=== PATIENT | female | born 1940 | race Caucasian/White ===

== ENCOUNTER 2019-07-30 20:38 | Emergency (ER) | payer MEDICARE, OTHER ==
[~2019-07-30] VITALS: Ht 158 cm; Wt 63.6 kg
[2019-07-30] MEDS ORDERED: AMLO5TAB9 (20:57)
[2019-07-30] MEDS ORDERED: ROSU20TA32 (20:57)
[2019-07-30] MEDS ORDERED: ASPI-999 PO (20:57)
[2019-07-30] MEDS ORDERED: METO-387 (20:57)
[2019-07-30] MEDS ORDERED: SERT50TA9 (20:57)
[2019-07-30] MEDS ORDERED: LOSA100T57 (20:57)
--- NOTE | 2019-07-30 21:32 | ED Fall/Injury ---
General Chief Complaint: Trauma-Non Activation Stated Complaint: FALL/ LT HAND LAC, BUMPED HER HEAD Nursing Triage Note: fall from standing position. Source: patient, family Exam Limitations: no limitations History of Present Illness Date Seen by Provider: Jul 30, 2019 Time Seen by Provider: 21:11 Initial Comments Patient presents ER by private conveyance with her niece and family with chief complaint that about 30 minutes prior to arrival she had a fall while walking her niece's dog a large Labrador retriever. She said the dog saw her niece and wanted to run to her pulling the patient to the ground face first. She said she was out for about a second and then confused for several minutes. The fall was witnessed by family. She's having some pain in the middle of her chest where she hit the ground as well as has a hematoma and pain over her fifth metacarpal dorsally. She has pain in her mentum but not in her TMJ bilaterally. She has no shortness of breath cough fever chills nausea vomiting dysuria diarrhea. She does not take blood thinner but she does take aspirin. She recently moved to [place] in the independent living and has not established care with a primary care doctor yet but she is filling out paperwork to follow with Dr. Holcomb. Allergies and Home Medications Allergies Coded Allergies: duloxetine (Verified Allergy, Unknown, 07/30/19) hydrocodone (Verified Allergy, Unknown, 07/30/19) lisinopril (Verified Allergy, Unknown, 07/30/19) morphine (Verified Allergy, Unknown, 07/30/19) sulfamethoxazole (Verified Allergy, Unknown, Rash, 07/30/19) tetanus and diphtheria toxoids (Verified Allergy, Unknown, 07/30/19) trimethoprim (Verified Allergy, Unknown, Rash, 07/30/19) Patient Home Medication List Home Medication List Reviewed: Yes Review of Systems Review of Systems Constitutional: No chills, No diaphoresis Eyes: Denies Blindness, Denies Blurred Vision Ears, Nose, Mouth, Throat: denies ear pain, denies ear discharge Respiratory: No cough, No hemoptysis Cardiovascular: see HPI, chest pain; No edema, No Hx of Intervention, No palpitations Gastrointestinal: No abdominal pain, No constipation, No diarrhea, No nausea Genitourinary: No discharge, No dysuria Musculoskeletal: see HPI All Other Systems Reviewed Negative Unless Noted: Yes Past Uwqrqjb-Tyexbv-Vidiwc Hx Patient Social History Alcohol Use: Denies Use Recreational Drug Use: No Smoking Status: Never a Smoker 2nd Hand Smoke Exposure: No Recent Foreign Travel: No Contact w/Someone Who Travel: No Recent Infectious Disease Expo: No Recent Hopitalizations: No Physical Abuse: No Sexual Abuse: No Mistreated: No Fear: No Immunizations Up To Date Tetanus Booster (TDap): Unknown Date of Influenza Vaccine: Jul 28, 2019 Seasonal Allergies Seasonal Allergies: No Past Medical History Surgeries: Yes Adenoidectomy, Appendectomy, Gallbladder, Hysterectomy, Orthopedic, Tonsillectomy Respiratory: No Cardiac: Yes High Cholesterol, Hypertension Neurological: No : No [employer] History: Hysterectomy Genitourinary: No Gastrointestinal: No Musculoskeletal: Yes Arthritis Endocrine: No HEENT: No Hearing Impairment: Hard of Hearing, Hearing Aide Right, Hearing Aide Left Cancer: No Psychosocial: No Integumentary: No Blood Disorders: No Adverse Reaction/Blood Tranf: No Physical Exam Vital Signs Vital Signs - First Documented 07/30/19 20:43 Temp 36.4 Pulse 72 Resp 18 B/P (MAP) 168/93 (118) Pulse Ox 95 O2 Delivery Room Air Capillary Refill : Less Than 3 Seconds Height, Weight, BMI Height: '" Weight: lbs. oz. kg; 25.00 BMI Method: General Appearance: WD/WN, mild distress HEENT: PERRL/EOMI, normal ENT inspection, TMs normal, pharynx normal, other Neck: full range of motion, normal inspection Cardiovascular: normal peripheral pulses, regular rate, rhythm Respiratory: No chest non-tender (anterior mediastinum tender to direct palpation of the manubrium); lungs clear, normal breath sounds, no respiratory distress, no accessory muscle use Peripheral Pulses: 2+ Radial Pulses (R), 2+ Radial Pulses (L) Gastrointestinal: normal bowel sounds, non tender, soft Back: normal inspection, no vertebral tenderness Extremities: normal range of motion, normal capillary refill, other (left hand has a 3 cm hematoma with a cervical skin tear and there is a superficial one similar skin tear on the left elbow) Neurologic/Psychiatric: no motor/sensory deficits, alert, normal mood/affect, oriented x 3 Skin: warm/dry, ecchymosis (hematoma over the left hand fourth and fifth distal medical carpal metacarpal) [place] Coma Score Best Eye Response: (4) Open Spontaneously Best Verbal Response: (5) Oriented Best Motor Response: (6) Obeys Commands Alicia Total: 15 Procedures/Interventions Wound Location: Upper Extremities Other Wound Location Dorsum of the left hand over the distal fifth metacarpal Wound Length (cm): 1.5 Wound's Depth, Shape: superficial, linear Wound Explored: clean Irrigated w/ Saline (ccs): 20 Betadine Prep?: No Other Closure Supply: Wound Adhesive Wound Location: Upper Extremities Other Wound Location Left elbow Wound Length (cm): 1.5 Wound's Depth, Shape: superficial, linear Wound Explored: clean Irrigated w/ Saline (ccs): 15 Betadine Prep?: No Other Closure Supply: Wound Adhesive Progress/Results/Core Measures Results/Orders My Orders Orders - SANIYA CHENG Chest Pa/Lat (2 View) (07/30/19 21:22) Ct Head/Face/Cervical Wo (07/30/19 21:22) Hand, Left, 3 Views (07/30/19 21:28) Vital Signs/I&O 07/30/19 20:43 Temp 36.4 Pulse 72 Resp 18 B/P (MAP) 168/93 (118) Pulse Ox 95 O2 Delivery Room Air Blood Pressure Mean: 118 POS Progress Progress Note : Time: 23:[address] of the head face and neck without IV contrast, x-ray of the left hand. Elbow has full range of motion of crepitus. Glue and/or dress her superficial skin tears. Lino bandage for compression applied. Patient declined a tetanus shot due to cited allergy. Diagnostic Imaging Diagonstic Imaging: CT (without IV contrast) Plain Films/CT/US/NM/MRI: facial bones, c-spine, head Comments Head CT without acute findings. C-spine without acute findings. Facial bones without acute findings. Reviewed: Reviewed Night [facility] Study, Reviewed by Me Diagonstic Imaging: Xray Plain Films/CT/US/NM/MRI: chest (2v) Comments No acute cardiopulmonary process. No acute osseous abnormality noted. Reviewed: Reviewed by Me Diagonstic Imaging: Xray Plain Films/CT/US/NM/MRI: hand (Left) Comments No acute osseous abnormality noted. Reviewed: Reviewed by Me Departure Impression Primary Impression: Fall Qualified Codes: W19.XXXA - Unspecified fall, initial encounter Additional Impressions: Sternal contusion Qualified Codes: S20.219A - Contusion of unspecified front wall of thorax, initial encounter Traumatic hematoma of left hand Qualified Codes: S60.222A - Contusion of left hand, initial encounter Skin tear Disposition: 01 HOME, SELF-CARE Condition: Stable Departure-Patient Inst. Decision time for Depature: 23:18 Referrals: NO,LOCAL PHYSICIAN (PCP/Family) Primary Care Physician Patient Instructions: HEMATOMA, Minor Head Injury (DC) Add. Discharge Instructions: Apply ice to your hand for 20 minutes every 4 hours while awake One to 2 days. Tylenol 1000 mg every 8 hours as needed for pain. Ibuprofen 800 mg every 8 hours as needed for pain. Compression dressing such as an Lino wrap until the swelling in your hand goes down. If you're still having significant pain or swelling at 7-10 days out then you should follow-up with your primary care doctor for reexamination. All discharge instructions reviewed with patient and/or family. Voiced understanding. SANIYA CHENG Jul 30, 2019 21:32 POS
[2019-07-30] MEDS ORDERED: KETOROLAC 60 MG/2 ML VIAL IM ONE (23:15)
[2019-07-30 23:30] VITALS: BP 172/87
--- NOTE | 2019-07-31 05:41 | Diagnostic Imaging Report ---
PROCEDURE: CT head, face, and cervical spine without contrast. TECHNIQUE: Multiple contiguous axial images were obtained through the head, neck, and facial bones without the use of intravenous contrast. Sagittal and coronal reformations through the cervical spine and facial bones were also performed. Auto Exposure Controls were utilized during the CT exam to meet ALARA standards for radiation dose reduction. INDICATION: Fall, pain COMPARISON: None available FINDINGS: Mild atrophy. No intracranial hemorrhage. No intracranial mass, mass effect, midline shift, herniation, hydrocephalus, or extra-axial fluid collection. Periventricular and subcortical white matter hypodensities are present, most consistent with mild chronic small vessel white matter ischemic disease. No definite CT evidence of an acute ischemic infarction. The bilateral ocular lenses are absent. Postsurgical changes of a left mastoidectomy are noted. This is associated with partial opacification of the remaining left mastoid air cells. Visualized paranasal sinuses are otherwise clear. The calvarium and extracalvarial soft tissues are otherwise unremarkable. Postsurgical changes of a left mastoidectomy. Partial opacification of the residual left mastoid air cells. Very minimal mucosal thickening within the right maxillary sinus. The paranasal sinuses are otherwise clear. The lamina papyracea are intact. The zygomatic arches are intact. No temporomandibular joint dislocation. Rightward deviation of the nasal septum. The bilateral ostiomeatal complexes are patent. No acute facial fracture. Mild subcutaneous fat stranding overlying the anterior aspect of the mandible. Minimal grade 1 anterolisthesis of C5 on C6 measuring approximately 4 mm. Alignment of the atlantooccipital joint is well maintained. Vertebral body heights are well-maintained. No acute fracture or dislocation. No destructive osseous process. Scattered facet joint degenerative changes and uncovertebral joint hypertrophy. Mild left neural foraminal stenosis at C2/C3. Moderate right neural foraminal stenosis at C3/C4. Moderate bilateral neural foraminal stenosis at C4/C5. Mild to moderate bilateral neural foraminal stenosis C5/C6. [id number]-[id number] bilateral neuroforaminal stenosis at C6/C7. No high-grade osseous central canal stenosis. Scattered vascular calcifications. Paraspinal soft tissues are otherwise unremarkable. IMPRESSION: No acute intracranial abnormality with mild atrophy and mild background chronic small vessel white matter ischemic disease. No acute facial fracture with mild soft tissue injury overlying the midline mandible. No acute osseous abnormality of the cervical spine with multilevel degenerative changes. Agree with the preliminary interpretation. Dictated by: Dictated on workstation # [id number]
--- NOTE | 2019-07-31 05:52 | Diagnostic Imaging Report ---
INDICATION: Fall with chest pain. PA and lateral views of the chest are obtained. FINDINGS: Overall heart size and pulmonary vascularity are within normal limits. There is no evidence of pneumothorax or focal consolidation. Note is made of an approximately 1 cm nodule projecting over the lower aspect of the lungs seen on the lateral image. This is likely within the right lower lobe although is not well-seen on the frontal projection. There is also mild fullness in the inferior right hilar region. No pleural fluid is identified. There has been previous cholecystectomy. IMPRESSION: 1 cm nodule projecting over the lower chest, likely within the right middle lobe. CT imaging of the chest should be performed for further assessment of this finding and assessment of the right infrahilar region. Dictated by: Dictated on workstation # [id number]
--- NOTE | 2019-07-31 05:54 | Diagnostic Imaging Report ---
INDICATION: Fall, pain. COMPARISON: None available. TECHNIQUE: 3 radiographs of left hand dated 07/30/2019 FINDINGS: No acute fracture or dislocation. No destructive osseous process. Mild scattered degenerative changes. No suspicious radiopaque foreign body. Focal soft tissue prominence overlying the 4th and 5th metacarpal heads. IMPRESSION: No acute osseous abnormality with mild degenerative changes. Focal soft tissue prominence overlying the 4th and 5th metacarpal heads. Dictated by: Dictated on workstation # [id number]
== END 2019-07-30 23:37 | disposition home or self-care (01) ==
LOC: ER 20:41
DX: S51.012A Laceration without foreign body of left elbow, initial encounter (principal); S20.219A Contusion of unspecified front wall of thorax, initial encounter; S60.222A Contusion of left hand, initial encounter; I10 Essential (primary) hypertension; E78.00 Pure hypercholesterolemia, unspecified; R40.2142 Coma scale, eyes open, spontaneous, at arrival to emergency department; R40.2252 Coma scale, best verbal response, oriented, at arrival to emergency department; R40.2362 Coma scale, best motor response, obeys commands, at arrival to emergency department; Z90.49 Acquired absence of other specified parts of digestive tract; Z90.89 Acquired absence of other organs; Z90.710 Acquired absence of both cervix and uterus; Z88.5 Allergy status to narcotic agent; Z88.2 Allergy status to sulfonamides; Z88.7 Allergy status to serum and vaccine; Z88.1 Allergy status to other antibiotic agents; Z88.8 Allergy status to other drugs, medicaments and biological substances; W18.39XA Other fall on same level, initial encounter; Y93.K1 Activity, walking an animal
CPT/HCPCS: 70450; 70486; 71046; 72125; 73130; 96372

== ENCOUNTER 2020-09-06 12:00 | Outpatient (CLI) | payer MEDICARE, OTHER ==
[~2020-09-06 12:00] MED LIST: AMLO-250; ASPI-999 PO; LOSA100T57; MTP25TSR; ROSU20TA32; SERT50TA9
== END 2020-09-06 13:45 | disposition home or self-care (01) ==
LOC: CARD 13:45
PROVIDERS: ATTEND Physician Assistant
DX: G47.33 Obstructive sleep apnea (adult) (pediatric) (principal); I25.10 Atherosclerotic heart disease of native coronary artery without angina pectoris; G47.10 Hypersomnia, unspecified; I10 Essential (primary) hypertension
CPT/HCPCS: 93306; G0399

== ENCOUNTER → 2020-09-09 | Outpatient (CLI) | payer MEDICARE, OTHER ==
[~2020-09-09] VITALS: Ht 157 cm; Wt 68.0 kg
[~2020-09-09] MED LIST changes: +CATHETER FLUSH 10 ML SYR IV PRN; +REGADENOSON 0.4 MG/5 ML SYR (LEXISCAN) IV ONE
[2020-09-09 08:55] VITALS: BP 165/85
== END ==
LOC: CARD 08:15
PROVIDERS: ATTEND Physician Assistant
DX: I25.10 Atherosclerotic heart disease of native coronary artery without angina pectoris (principal)
CPT/HCPCS: 78452; 93017; A9502

== ENCOUNTER → 2020-10-07 | Outpatient (CLI) | payer MEDICARE, OTHER ==
[~2020-10-07] MED LIST changes: -CATHETER FLUSH 10 ML SYR IV PRN; -REGADENOSON 0.4 MG/5 ML SYR (LEXISCAN) IV ONE
== END ==
LOC: LABNPT 05:30
PROVIDERS: ATTEND Internal Medicine Critical Care Medicine
DX: G47.33 Obstructive sleep apnea (adult) (pediatric) (principal); Z20.822 Contact with and (suspected) exposure to COVID-19
CPT/HCPCS: 87635

== ENCOUNTER → 2020-10-09 | Outpatient (CLI) | payer MEDICARE, OTHER | LOC: SLEEP 19:25 | PROVIDERS: ATTEND Nurse Practitioner | DX: G47.33 Obstructive sleep apnea (adult) (pediatric) (principal); R53.83 Other fatigue | CPT/HCPCS: 95811 ==

== ENCOUNTER → 2021-02-21 | Outpatient (CLI) | payer MEDICARE, OTHER ==
[~2021-02-21] MED LIST changes: +SERT-413; -SERT50TA9
--- NOTE | 2021-02-21 11:56 | Diagnostic Imaging Report ---
CLINICAL INDICATION: Patient with neck pain and left shoulder pain and numbness in fingers. EXAM: MRI of the cervical spine without IV contrast. Sequences include sagittal T2, sagittal T1, sagittal stir, and axial T2. COMPARISON: CT scan of the cervical spine dated 07/30/2019. FINDINGS: There is no acute cervical spine fracture. There is an intraosseous hemangioma within the right side of the T1 vertebra. There is heterogeneous signal seen throughout the cervical spine which is not significant. Limited visualization of posterior fossa shows no significant abnormality. Cervical spinal cord is unremarkable as visualized. There is a 9 mm high T2 signal nodule involving left thyroid lobe. There is no significant paraspinal soft tissue abnormality. There are cervical spine spurs and facet arthropathy involving the cervical spine. C1-C2: There is degenerative spurs involving the atlantoodontoid interval anteriorly. There is a small patricia-odontoid pannus. There is no significant central canal narrowing. C2-C3: There is again seen severe left facet arthropathy/hypertrophy and mild right facet arthropathy. There is moderate left neural foramen narrowing and no significant right neural foramen narrowing which is not significantly changed. There is no significant central canal narrowing. There is mild ligament flavum buckling. C3-C4: There is very subtle grade 1 anterolisthesis C3 on C4 which is stable. There is moderate bilateral facet arthropathy. There is no significant left neural foramen narrowing. There is stable moderate to severe right neural foramen narrowing. There is stable mild central canal stenosis. C4-C5: Stable subtle grade 1 anterolisthesis C4 on C5. There is diffuse disk bulge, moderate left facet arthropathy/hypertrophy and mild right facet arthropathy. There is bilateral uncinate spurs and mild loss of disk space height. There is severe central canal stenosis and severe bilateral neural foramen narrowing which is difficult to compare degree of central canal narrowing. The bilateral neural foramen narrowing appears to have progressed. C5-C6: There is stable grade 1 anterolisthesis of C5 on C6 with severe bilateral facet arthropathy/hypertrophy. There is moderate right neural foramen narrowing, mild left neural foramen narrowing, and moderate central canal stenosis. C6-C7: Stable subtle grade 1 anterolisthesis of C6 and C7. There is a diffuse disk bulge. There is severe bilateral facet arthropathy. There is minimal encroachment upon the central canal anteriorly. There is mild right neural foramen narrowing and no significant left neural foramen narrowing. C7-T1: There is a mild diffuse disk bulge, severe right facet arthropathy/hypertrophy and moderate left facet arthropathy. There is no significant central canal narrowing. There is at least moderate to severe left neural foramen narrowing and mild to moderate right neural foramen narrowing. 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 2: There is a 9 mm left thyroid lobe nodule. Nonemergent thyroid ultrasound better evaluate. Dictated by: Dictated on workstation # [id number]
--- NOTE | 2021-02-21 12:25 | Diagnostic Imaging Report ---
EXAMINATION: Magnetic resonance imaging of the left shoulder without contrast. DATE: February 21, 2021. COMPARISON: None. HISTORY: 80-year-old female, left shoulder and neck pain. TECHNIQUE: Magnetic Resonance Imaging sequences were performed of the shoulder without contrast. FINDINGS: ROTATOR CUFF, LIGAMENTS, TENDONS, AND MUSCLES: The supraspinatus, infraspinatus, teres minor, and subscapularis tendons and muscles are intact. There is normal rotator cuff muscle bulk and signal. LONG HEAD OF BICEPS: The biceps labral attachment and long head of the biceps tendon is intact. The long head of the biceps tendon is normally positioned within the bicipital groove. GLENOHUMERAL JOINT: The humeral head is well positioned relative to the glenoid. The labrum is grossly intact. There is no identified paralabral cyst. The articular cartilage is grossly intact. There is no joint effusion. ACROMIOCLAVICULAR JOINT: The acromioclavicular joint is normally aligned. The coracoclavicular and coracoacromial ligaments are intact. There are mild acromioclavicular degenerative changes with osteophytes extending 1 to 2 mm below the joint margin. BONE: There is no os acromiale. There is no Hill-Sachs deformity. There is no acute fracture, bone contusion, or evidence of osteonecrosis. BURSAE AND SOFT TISSUES: The bursae and soft tissue surrounding the shoulder are unremarkable. IMPRESSION: 1. Intact rotator cuff and proximal long head of the biceps tendon. 2. Grossly intact labrum and unremarkable additional glenohumeral joint assessment. 3. Mild acromioclavicular degenerative changes with 1 to 2 mm undersurface osteophytes. 4. No acute fracture, bone contusion, or evidence of osteonecrosis. Dictated by: Dictated on workstation # [id number]
== END ==
LOC: RAD 10:15
PROVIDERS: ATTEND Family Medicine
DX: M47.812 Spondylosis without myelopathy or radiculopathy, cervical region (principal); M47.813 Spondylosis without myelopathy or radiculopathy, cervicothoracic region; M19.012 Primary osteoarthritis, left shoulder; M50.221 Other cervical disc displacement at C4-C5 level; M50.223 Other cervical disc displacement at C6-C7 level; M50.321 Other cervical disc degeneration at C4-C5 level; M50.23 Other cervical disc displacement, cervicothoracic region; M48.02 Spinal stenosis, cervical region; M48.03 Spinal stenosis, cervicothoracic region; M43.12 Spondylolisthesis, cervical region; M89.38 Hypertrophy of bone, other site; M25.78 Osteophyte, vertebrae; E04.1 Nontoxic single thyroid nodule
CPT/HCPCS: 72141; 73221

== ENCOUNTER → 2021-03-05 | Outpatient (CLI) | payer MEDICARE ==
--- NOTE | 2021-03-05 17:55 | Diagnostic Imaging Report ---
PROCEDURE: US Thyroid. TECHNIQUE: Multiple real-time grayscale images were obtained of the thyroid in various projections. INDICATION: Left thyroid nodule seen on MRI. COMPARISON: MRI from 02/21/2021. FINDINGS: The right thyroid lobe measures 3.6 x 1.7 x 1.1 cm in size. Background echotexture is mildly heterogeneous and vascularity appears normal. There is a cystic 5 mm nodule and a cystic 2 mm nodule, neither of which warrant follow-up. The isthmus measures 3 mm in width. The left thyroid lobe measures 4.6 x 1.3 x 1.2 cm in size. Background echotexture is mildly heterogeneous. Vascularity appears normal. There is a solid 0.9 x 1.0 x 0.6 cm nodule in the superior left thyroid which is hypoechoic with smooth borders and no calcifications. This is a TI-RADS 4 nodule and warrants follow-up. A cystic 4 mm nodule requires no follow-up. There is a mildly heterogeneous hypoechoic nodule in the inferior thyroid measuring up to 7 mm, which also does not warrant further follow-up based on TI-RADS criteria. IMPRESSION: 1. Solid hypoechoic nodule in the superior left thyroid, TI-RADS 4. Recommend follow-up ultrasound in one year. Dictated by: Dictated on workstation # [id number]
== END ==
LOC: RAD 11:30
PROVIDERS: ATTEND Family Medicine
DX: E04.1 Nontoxic single thyroid nodule (principal)
CPT/HCPCS: 76536

== ENCOUNTER → 2021-03-24 | Outpatient (CLI) | payer MEDICARE, OTHER | LOC: LABNPT 08:45 | PROVIDERS: ATTEND Otolaryngology Otolaryngology/Facial Plastic Surgery | DX: G47.33 Obstructive sleep apnea (adult) (pediatric) (principal); G47.31 Primary central sleep apnea; Z20.822 Contact with and (suspected) exposure to COVID-19 ==

== ENCOUNTER 2021-03-26 19:22 | Outpatient (CLI) | payer MEDICARE, OTHER | END 2021-03-27 06:30 | disposition home or self-care (01) | LOC: SLEEP 19:22 | PROVIDERS: ATTEND Otolaryngology Otolaryngology/Facial Plastic Surgery | DX: G47.33 Obstructive sleep apnea (adult) (pediatric) (principal); G47.31 Primary central sleep apnea; Z20.822 Contact with and (suspected) exposure to COVID-19 | CPT/HCPCS: 87635; 95811 ==

== ENCOUNTER 2021-04-03 08:21 | Outpatient (RCR) | payer MEDICARE, OTHER | END 2021-04-09 | disposition home or self-care (01) | PROVIDERS: ATTEND Family Medicine | DX: M25.512 Pain in left shoulder (principal); M54.2 Cervicalgia; M72.2 Plantar fascial fibromatosis ==

== ENCOUNTER 2021-07-03 08:00 | Outpatient (RCR) | payer MEDICARE, OTHER | END 2021-07-14 | disposition home or self-care (01) | PROVIDERS: ATTEND Family Medicine | DX: M25.512 Pain in left shoulder (principal); M54.2 Cervicalgia; M72.2 Plantar fascial fibromatosis; I10 Essential (primary) hypertension; E11.9 Type 2 diabetes mellitus without complications; G47.30 Sleep apnea, unspecified ==

== ENCOUNTER 2021-08-07 08:47 | Outpatient (RCR) | payer MEDICARE, OTHER | END 2021-09-19 | disposition home or self-care (01) | PROVIDERS: ATTEND Family Medicine | DX: M25.512 Pain in left shoulder (principal); M54.2 Cervicalgia; M72.2 Plantar fascial fibromatosis; I10 Essential (primary) hypertension; E11.9 Type 2 diabetes mellitus without complications ==

== ENCOUNTER → 2021-08-26 | Outpatient (CLI) | payer MEDICARE, OTHER ==
--- NOTE | 2021-08-26 09:36 | Diagnostic Imaging Report ---
INDICATION: Postmenopausal COMPARISON: None FINDINGS: The bone mineral density of the spine, hips and femoral necks was measured. The total T score for the spine is 1.8. The total T score for each hip is 0.4. The T score for the left femoral neck is -0.1 and for the right femoral neck 0.4. All of these values are within normal limits. AP Spine L1-L4: [BMD (g/cm2): 1.412] [T-Score: 1.8] [Z-Score: 3.5] [BMD Previous: NA] [BMD % Change: NA] LT Hip Neck: [BMD (g/cm2): 1.017] [T-Score: -0.1] [Z-Score: 2.0] LT Hip Total: [BMD (g/cm2):1.059] [T-Score:0.4] [Z-Score: 2.4] [BMD Previous: NA] [BMD % Change: NA] RT Hip Neck: [BMD (g/cm2):1.099] [T-Score:0.4] [Z-Score:2.6] RT Hip Total: [BMD (g/cm2):1.057] [T-score:0.4] [Z-Score:2.4] [BMD Previous:NA] [BMD % Change:NA] *Indicates significant change from prior examination based on 95% confidence level. World Health Organization criteria for BMD interpretation classify patients as Normal (T-score at or above -1.0), Osteopenic (T-score between -1.0 and -2.5) or Osteoporotic (T-score at or below -2.5). LIMITATIONS AND MODIFICATION: None. FRACTURE RISK (FRAX SCORE): The ten year probability of (%): Major Osteoporotic Fracture: [NA] Hip Fracture: [NA] IMPRESSION: 1. The bone mineral density of the spine, the hips and in the femoral necks is within normal limits. 2. 3. See below National Osteoporosis Foundation guidelines on when to potentially initiate pharmacologic therapy. Based on the National Osteoporosis Foundation Guidelines, pharmacologic treatment should be initiated in any of the following, unless clinical conditions suggest otherwise: * Any patient with prior fragility fracture of the hip or vertebrae. A spine fracture indicates 5X risk for subsequent spine fracture and 2X risk for subsequent hip fracture. * Osteoporosis (T-score <-2.5). * Postmenopausal women and men age 50 and older with low bone mass/osteopenia (T-score between -1.0 and -2.5) by DXA and 10-year major osteoporotic fracture greater than 20% or a 10-year probability of hip fracture greater than 3%. These fracture risks are supplied above in the FRAX score, if applicable. * Clinician judgement and/or patient preferences may indicate treatment for people with 10-year fracture probabilities above or below these levels. Dictated by: Dictated on workstation # [id number]
== END ==
LOC: RAD 08:56
PROVIDERS: ATTEND Nurse Practitioner Family
DX: Z78.0 Asymptomatic menopausal state (principal)
CPT/HCPCS: 77080

== ENCOUNTER → 2021-09-30 | Outpatient (CLI) | payer MEDICARE, OTHER | LOC: ORTHO 13:35 | PROVIDERS: ATTEND Orthopaedic Surgery | DX: G56.03 Carpal tunnel syndrome, bilateral upper limbs (principal) | CPT/HCPCS: 99203 ==

== ENCOUNTER → 2021-10-28 | Outpatient (CLI) | payer MEDICARE, OTHER ==
--- NOTE | 2021-10-28 16:45 | Diagnostic Imaging Report ---
INDICATION: Fall. Pain. COMPARISON: None. FINDINGS: AP view of the pelvis and two dedicated radiographic views of the left hip were obtained. There is no fracture, dislocation, bone destruction, or radiopaque foreign body. The visualized pelvic osseous structures and the SI joints demonstrate no acute fracture or dislocation. There is no bone destruction or radiopaque foreign body. The surrounding soft tissue structures are unremarkable. IMPRESSION: 1. No acute fracture or dislocation in the pelvis or left hip. Dictated by: Dictated on workstation # [id number]
--- NOTE | 2021-10-28 16:46 | Diagnostic Imaging Report ---
INDICATION: Fall. Pain. COMPARISON: None. FINDINGS: Multiple radiographic views of the sacrum and coccyx were obtained and show no fractures, dislocations, or other acute bony abnormalities. Joint spaces are well maintained throughout. The soft tissues appear unremarkable. No radiopaque foreign bodies are identified. IMPRESSION: Unremarkable radiographic exam of the sacrum and coccyx. Dictated by: Dictated on workstation # [id number]
== END ==
LOC: RAD 14:24
PROVIDERS: ATTEND Family Medicine
DX: M25.552 Pain in left hip (principal); M53.3 Sacrococcygeal disorders, not elsewhere classified; W19.XXXA Unspecified fall, initial encounter
CPT/HCPCS: 72220

== ENCOUNTER 2021-10-31 05:32 | Outpatient (CLI) | payer MEDICARE, OTHER ==
[~2021-10-31] VITALS: Ht 160 cm; Wt 70.2 kg
[2021-11-03] MEDS ORDERED: VITAMIN D (15:06)
== END 2021-11-03 15:32 | disposition home or self-care (01) ==
LOC: PREOP 05:32
PROVIDERS: ATTEND Orthopaedic Surgery
DX: Z01.818 Encounter for other preprocedural examination (principal)

== ENCOUNTER → 2021-11-17 | Outpatient (RCR) | payer MEDICARE, OTHER ==
[~2021-11-17] MED LIST changes: +VITAMIN D
== END | disposition home or self-care (01) ==
PROVIDERS: ATTEND Family Medicine
DX: M54.2 Cervicalgia (principal); M54.50 Low back pain, unspecified; M25.512 Pain in left shoulder; I10 Essential (primary) hypertension; E11.9 Type 2 diabetes mellitus without complications

== ENCOUNTER 2021-12-01 05:41 | Outpatient (CLI) | payer MEDICARE, OTHER | END 2021-12-02 17:30 | LOC: PREOP 05:41 | PROVIDERS: ATTEND Orthopaedic Surgery | DX: Z01.818 Encounter for other preprocedural examination (principal) ==

== ENCOUNTER 2021-12-08 07:08 | Day surgery (SDC) | payer MEDICARE, OTHER ==
[~2021-12-08] VITALS: Ht 157.5 cm; Wt 73.7 kg
[2021-12-08] VITALS (8 sets, daily range): BP systolic 103–157; BP diastolic 60–87
[2021-12-08] MEDS ORDERED: LACTATED RINGERS 1,000 ML IV PRN (07:45)
[2021-12-08] MEDS ORDERED: ceFAZolin INJECTION 1,000 MG VIAL IV ONE (07:45)
[2021-12-08] MEDS ORDERED: PROPOFOL INJECTION 50 ML IV ONE (08:14)
[2021-12-08] MEDS ORDERED: NEO/POLY/BAC (NEOSPORIN) OINT 15 GM TUBE ONE (08:25)
[2021-12-08] MEDS ORDERED: BUPIVACAINE 0.5% 30 ML (SENSORCAINE) VIAL ONE (08:26)
[2021-12-08] MEDS ORDERED: MIDAZOLAM 2 MG/2 ML (VERSED) VIAL ONE (08:59)
[2021-12-08] MEDS ORDERED: LIDOCAINE PF 0.5% 50 ML (XYLOCAINE) VIAL ONE (09:00)
[2021-12-08] MEDS ORDERED: ONDANSETRON 4 MG/2 ML (SDV) Z0FRAN ONE ×2 (09:26→09:39)
[2021-12-08] MEDS ORDERED: TRAM50TA3 PO (09:54)
--- NOTE | 2021-12-08 09:54 | Anesthesia-General Post-Op ---
MAC Patient Condition Mental Status/LOC: Same as Preop Cardiovascular: Satisfactory Nausea/Vomiting: Absent Respiratory: Satisfactory Pain: Controlled Complications: Absent Post Op Complications Complications None Follow Up Care/Instructions Patient Instructions None needed. Anesthesiology Discharge Order Discharge Order Patient is doing well, no complaints, stable vital signs, no apparent adverse anesthesia problems. No complications reported per nursing. KENNA CANADA CRNA Dec 08, 2021 09:54
--- NOTE | 2021-12-08 09:59 | Operative Report - Ortho ---
Operative Report Surgeon (s)/Protective Signal Repairer Helper (s) Surgeon AMY JEFFREY MD Protective Signal Repairer Helper n/a Pre-Operative Diagnosis LEFT CARPAL TUNNEL SYNDROME Post-Operative Diagnosis same Operative Report Date of Procedure: Dec 08, 2021 Name of Procedure Performed: Left Carpal Tunnel Release Description & Findings After obtaining informed consent and marking the patient in the preoperative holding area, the patient was administered IV antibiotics. The patient was t aken to the operating room and sebastián block anesthesia was induced. The left upper extremity was prepped and draped in the usual sterile fashion. Surgical timeout was taken. Incision was made just ulnar to the thenar crease. Blunt dissection was carried down to the longitudinal fibers of the palmar fascia; these were divided in line revealing the transverse carpal ligament. Beginning distally and working proximally, carpal tunnel release was performed. Nerve protector was placed and release was completed back to the level of the forearm fascia. Probe was inserted and release was palpably complete. Tourniquet was dropped and hemostasis was achieved. Wound was closed with 4-0 nylon. Wound was dressed with antibiotic ointment, xeroform, 4x4s, grisel, ABD for soft splint, cast padding, and MAURY wrap. Patient tolerated the proceudre well and was stable to the recovery room. Anesthesia Type Sebastián block Estimated Blood Loss minimal Specimen(s) collected/removed None AMY JEFFREY MD Dec 08, 2021 09:59
[2021-12-08] MEDS ORDERED: fentaNYL INJ 100 MCG/2 ML AMP IVP ONE (10:00)
[2021-12-08] MEDS ORDERED: ONDANSETRON 4 MG/2 ML (SDV) Z0FRAN IVP PRN (10:00)
== END 2021-12-08 11:40 | disposition home or self-care (01) ==
LOC: SDC 07:08
PROVIDERS: ATTEND Orthopaedic Surgery
DX: G56.02 Carpal tunnel syndrome, left upper limb (principal)
CPT/HCPCS: 87081

== ENCOUNTER → 2021-12-11 | Outpatient (CLI) | payer MEDICARE, OTHER ==
[~2021-12-11] MED LIST changes: +TRAM50TA3 PO
== END ==
LOC: ORTHO 08:36
PROVIDERS: ATTEND Orthopaedic Surgery
DX: Z47.89 Encounter for other orthopedic aftercare (principal); Z98.890 Other specified postprocedural states

== ENCOUNTER → 2021-12-18 | Outpatient (RCR) | payer MEDICARE, OTHER | END | disposition home or self-care (01) | PROVIDERS: ATTEND Family Medicine | DX: M54.2 Cervicalgia (principal); M54.50 Low back pain, unspecified; M25.512 Pain in left shoulder; I10 Essential (primary) hypertension; E11.9 Type 2 diabetes mellitus without complications ==

== ENCOUNTER → 2022-01-20 | Outpatient (CLI) | payer MEDICARE, OTHER | LOC: ORTHO 13:45 | PROVIDERS: ATTEND Orthopaedic Surgery | DX: Z47.89 Encounter for other orthopedic aftercare (principal); Z98.890 Other specified postprocedural states ==

== ENCOUNTER → 2022-03-03 | Outpatient (CLI) | payer MEDICARE, OTHER | LOC: ORTHO 09:43 | PROVIDERS: ATTEND Orthopaedic Surgery | DX: Z47.89 Encounter for other orthopedic aftercare (principal) ==

== ENCOUNTER → 2022-08-27 | Outpatient (CLI) | payer MEDICARE, OTHER ==
--- NOTE | 2022-08-27 16:04 | Diagnostic Imaging Report ---
PROCEDURE: MR imaging cervical spine without contrast. TECHNIQUE: Multiplanar, multisequence MR imaging of the cervical spine was performed without contrast. INDICATION: Chronic neck pain. COMPARISON: 02/21/2021. FINDINGS: No acute fracture or dislocation is seen in the cervical spine. There is straightening of the cervical spine. The vertebral body heights and disc spaces are well maintained. The bone marrow signal is unremarkable. No focal osseous lesions. The craniocervical junction is maintained. The cervical spinal cord demonstrates normal intrinsic signal. No epidural collections are seen. The included brainstem and posterior fossa have normal appearance. Multilevel degenerative changes are seen in the cervical spine with posterior disc bulges and uncovertebral arthropathy. C2-C3: No significant spinal canal or foraminal stenosis. C3-C4: No significant spinal canal or foraminal stenosis. C4-C5: Posterior disc bulge, buckling of the ligamentum flavum and uncovertebral arthropathy results in severe spinal canal stenosis and moderate right and moderate to severe left foraminal stenosis. C5-C6: Posterior disc bulge, buckling of the ligamentum flavum and uncovertebral arthropathy results in moderate to severe spinal canal stenosis and mild bilateral foraminal narrowing. C6-C7: Posterior disc bulge and uncovertebral arthropathy results in moderate spinal canal stenosis and mild bilateral foraminal narrowing. C7-T1: Uncovertebral arthropathy results in mild spinal canal narrowing and no right and mfck-tc-vdlaaczw left foraminal stenosis. The soft tissues of neck are unremarkable. Stable left-sided thyroid nodule measuring 0.8 cm. IMPRESSION: 1. No acute fracture or dislocation of the cervical spine. 2. Multilevel degenerative changes in the cervical spine, greatest at C4-C5, C5-C6 and C6-C7. Dictated by: Dictated on workstation # [id number]
--- NOTE | 2022-08-27 16:12 | Diagnostic Imaging Report ---
PROCEDURE: MRI lumbar spine without contrast. TECHNIQUE: Multiplanar, multisequence MRI of the lumbar spine was performed without contrast. INDICATION: Chronic back pain. COMPARISON: None. FINDINGS: 5 lumbar type vertebral bodies are visualized with the last well-formed disc space designated L5-S1. No acute fracture or dislocation is seen in the lumbar spine. There is straightening of the lumbar spine. Vertebral body heights and disc spaces are well-maintained. Bone island is seen in the L1 vertebral body. Hemangiomas are seen in the L3 and L4 vertebral bodies. The conus terminates at the L1 level. No masses are seen associated with the conus or nerve roots of the cauda equina. No epidural collections are identified. Multilevel degenerative changes are seen in the lumbar spine with disc bulges, facet hypertrophy, and buckling of the ligamentum flavum. T12-L1: No significant spinal canal or foraminal stenosis. L1-L2: No significant spinal canal or foraminal stenosis. L2-L3: Broad-based disc bulge, facet hypertrophy, and buckling of the ligamentum flavum results in moderate spinal canal stenosis and mild right and eiba-up-uontwkhm left foraminal narrowing. L3-L4: Broad-based disc bulge, facet hypertrophy, and buckling of the ligamentum flavum results in moderate spinal canal stenosis and pajr-bw-uuircafa bilateral foraminal narrowing. L4-L5: Broad-based disc bulge, facet hypertrophy, and buckling of the ligamentum flavum results in moderate to severe spinal canal stenosis and moderate right and vjss-xj-riskstsi left foraminal narrowing. L5-S1: Broad-based disc bulge, facet hypertrophy, and buckling of the ligamentum flavum results in moderate to severe spinal canal stenosis and moderate right and moderate to severe left foraminal stenosis. Paravertebral soft tissues are unremarkable. IMPRESSION: 1. No acute fracture or dislocation in the lumbar spine. 2. Multilevel degenerative changes in the lumbar spine, greatest at L2-L3, L3-L4, L4-L5 and L5-S1. Dictated by: Dictated on workstation # [id number]
== END ==
LOC: RAD 13:15
PROVIDERS: ATTEND Nurse Practitioner Family
DX: M47.812 Spondylosis without myelopathy or radiculopathy, cervical region (principal); M47.816 Spondylosis without myelopathy or radiculopathy, lumbar region; M47.817 Spondylosis without myelopathy or radiculopathy, lumbosacral region
CPT/HCPCS: 72141; 72148

== ENCOUNTER → 2022-09-15 | Outpatient (CLI) | payer MEDICARE, OTHER ==
--- NOTE | 2022-09-15 13:45 | Diagnostic Imaging Report ---
INDICATION: Right hand pain. COMPARISON: None available. TECHNIQUE: 3 radiographs of the right hand dated 09/15/2022. FINDINGS: No acute fracture or dislocation. No destructive osseous process. Scattered joint space narrowing with associated osteophyte formation is identified, greatest involving the 1st interphalangeal joint and 2nd DIP joint. Scapholunate intervals within normal limits. No suspicious radiopaque foreign body. IMPRESSION: No acute osseous abnormality with moderate degenerative changes present, greatest involving the 1st interphalangeal joint and 2nd DIP joint. Dictated by: Dictated on workstation # [id number]
== END ==
LOC: ORTHO 10:01
PROVIDERS: ATTEND Orthopaedic Surgery
DX: M19.041 Primary osteoarthritis, right hand (principal)
CPT/HCPCS: 73130; G0463; 99213

== ENCOUNTER 2022-09-17 15:34 | Outpatient (RCR) | payer MEDICARE, OTHER ==
[2022-09-22] MEDS ORDERED: CYAN250014 PO (09:17)
== END 2022-09-19 | disposition home or self-care (01) ==
PROVIDERS: ATTEND Nurse Practitioner Family
DX: M54.2 Cervicalgia (principal); I10 Essential (primary) hypertension; E11.9 Type 2 diabetes mellitus without complications

== ENCOUNTER → 2022-09-18 | Outpatient (CLI) | payer MEDICARE, OTHER ==
[~2022-09-18] VITALS: Ht 158 cm; Wt 73.7 kg
[~2022-09-18] MED LIST changes: +CYAN250014 PO
== END | disposition home or self-care (01) ==
LOC: PREOP 07:32
PROVIDERS: ATTEND Orthopaedic Surgery
DX: Z01.818 Encounter for other preprocedural examination (principal)

== ENCOUNTER 2022-09-25 08:57 | Day surgery (SDC) | payer MEDICARE, OTHER ==
[2022-09-25] VITALS (9 sets, daily range): BP systolic 132–160; BP diastolic 75–87
[~2022-09-25] VITALS: Ht 158 cm; Wt 73.7 kg
[2022-09-25] MEDS ORDERED: LACTATED RINGERS 1,000 ML IV PRN (09:30)
[2022-09-25] MEDS ORDERED: ceFAZolin INJECTION 1,000 MG in NS (IVPB) 50 ML IV ONE (09:30)
--- NOTE | 2022-09-25 10:45 | Progress Note-Pre Operative ---
Pre-Operative Progress Note Date of Available H&P: Sep 15, 2022 Date H&P Reviewed: Sep 25, 2022 Time H&P Reviewed: 10:35 History & Physical: H&P Reviewed, Patient Examed, No changes noted Pre-Operative Diagnosis: Right Carpal Tunnel Release AMY JEFFREY MD Sep 25, 2022 10:44
--- NOTE | 2022-09-25 12:34 | Anesthesia-General Post-Op ---
MAC Patient Condition Mental Status/LOC: Same as Preop Cardiovascular: Satisfactory Nausea/Vomiting: Absent Respiratory: Satisfactory Pain: Controlled Complications: Absent Post Op Complications Complications None Follow Up Care/Instructions Patient Instructions None needed. Anesthesiology Discharge Order Discharge Order Patient is doing well, no complaints, stable vital signs, no apparent adverse anesthesia problems. No complications reported per nursing. AMY CHUA CRNA Sep 25, 2022 12:34
--- NOTE | 2022-09-25 12:37 | Operative Report - Ortho ---
Operative Report Surgeon (s)/Family Day Care Provider (s) Surgeon AMY JEFFREY MD Family Day Care Provider n/a Pre-Operative Diagnosis Right Carpal Tunnel Syndrome Post-Operative Diagnosis same Operative Report Date of Procedure: Sep 25, 2022 Name of Procedure Performed: Right Carpal Tunnel Release Description & Findings After obtaining informed consent and marking the patient in the preoperative holding area, the patient was administered IV antibiotics. The patient was taken to the operating room and sebastián block anesthesia was induced. The right upper extremity was prepped and draped in the usual sterile fashion. Surgical timeout was taken. Incision was made just ulnar to the thenar crease. Blunt dissection was carried down to the longitudinal fibers of the palmar fascia; these were divided in line revealing the transverse carpal ligament. Beginning distally and working proximally, carpal tunnel release was performed. Nerve protector was placed and release was completed back to the level of the forearm fascia. Probe was inserted and release was palpably complete. Tourniquet was dropped and hemostasis was achieved. Wound was closed with 4-0 nylon. Wound was dressed with antibiotic ointment, xeroform, 4x4s, grisel, ABD for soft splint, cast padding, and MAURY wrap. Patient tolerated the procedure well and was stable to the recovery room. Anesthesia Type Sebastián block Estimated Blood Loss minimal Specimen(s) collected/removed None AMY JEFFREY MD Sep 25, 2022 12:37
[2022-09-25] MEDS ORDERED: TRAM50TA3 PO (12:39)
[2022-09-25] MEDS ORDERED: ONDANSETRON 4 MG/2 ML (SDV) Z0FRAN IVP PRN (12:45)
== END 2022-09-25 13:50 | disposition home or self-care (01) ==
LOC: SDC 08:57
PROVIDERS: ATTEND Orthopaedic Surgery
DX: G56.01 Carpal tunnel syndrome, right upper limb (principal); G47.33 Obstructive sleep apnea (adult) (pediatric); Z79.899 Other long term (current) drug therapy
CPT/HCPCS: 82947; 87081

== ENCOUNTER → 2022-10-08 | Outpatient (CLI) | payer MEDICARE, OTHER | LOC: ORTHO 10:45 | PROVIDERS: ATTEND Orthopaedic Surgery | DX: Z09 Encounter for follow-up examination after completed treatment for conditions other than malignant neoplasm (principal) ==

== ENCOUNTER 2022-10-19 13:29 | Outpatient (RCR) | payer MEDICARE, OTHER | END 2022-10-20 | disposition home or self-care (01) | PROVIDERS: ATTEND Nurse Practitioner Family | DX: M54.2 Cervicalgia (principal); I10 Essential (primary) hypertension; E11.9 Type 2 diabetes mellitus without complications ==

== ENCOUNTER 2022-11-09 15:46 | Outpatient (RCR) | payer MEDICARE, OTHER | END 2022-11-17 | disposition home or self-care (01) | PROVIDERS: ATTEND Nurse Practitioner Family | DX: M54.2 Cervicalgia (principal); I10 Essential (primary) hypertension; E11.9 Type 2 diabetes mellitus without complications ==

== ENCOUNTER → 2022-11-17 | Outpatient (CLI) | payer MEDICARE, OTHER | LOC: ORTHO 10:14 | PROVIDERS: ATTEND Orthopaedic Surgery | DX: Z47.89 Encounter for other orthopedic aftercare (principal); I10 Essential (primary) hypertension; E78.2 Mixed hyperlipidemia ==

== ENCOUNTER 2022-12-08 12:59 | Outpatient (RCR) | payer MEDICARE, OTHER | END 2022-12-18 | disposition home or self-care (01) | PROVIDERS: ATTEND Nurse Practitioner Family | DX: M54.2 Cervicalgia (principal); I10 Essential (primary) hypertension; E11.9 Type 2 diabetes mellitus without complications ==

== ENCOUNTER 2022-12-23 08:39 | Outpatient (RCR) | payer MEDICARE, OTHER | END 2023-01-17 | disposition home or self-care (01) | PROVIDERS: ATTEND Nurse Practitioner Family | DX: M54.2 Cervicalgia (principal); I10 Essential (primary) hypertension; E11.9 Type 2 diabetes mellitus without complications ==